=== PATIENT | male | born 1950 | race Caucasian/White ===

== ENCOUNTER 2021-03-15 11:58 | Outpatient (CLI) | payer OTHER | END 2021-03-15 11:59 | disposition home or self-care (01) | LOC: LAB 11:58 | PROVIDERS: ATTEND Radiology Diagnostic Radiology | DX: N28.89 Other specified disorders of kidney and ureter (principal) ==

== ENCOUNTER 2021-03-17 08:35 | Outpatient (CLI) | payer OTHER | END 2021-03-17 09:00 | disposition home or self-care (01) | LOC: TOM 08:35 | PROVIDERS: ATTEND Phlebology | DX: K76.89 Other specified diseases of liver (principal); Q44.6 Cystic disease of liver; Z98.62 Peripheral vascular angioplasty status; I72.3 Aneurysm of iliac artery | CPT/HCPCS: 74174; Q9965 ==

== ENCOUNTER 2021-08-25 08:35 | Outpatient (CLI) | payer OTHER | END 2021-08-25 09:15 | disposition home or self-care (01) | LOC: TOM 08:35 | PROVIDERS: ATTEND Phlebology | DX: Z98.62 Peripheral vascular angioplasty status (principal); I72.3 Aneurysm of iliac artery | CPT/HCPCS: 74174; Q9965 ==

== ENCOUNTER 2024-03-01 10:18 | Emergency (ER) | payer OTHER ==
[~2024-03-01] VITALS: Ht 170.2 cm; Wt 63.5 kg
[2024-03-01] MEDS ORDERED: ATORVASTATIN CA40 MG PO (10:50)
[2024-03-01] MEDS ORDERED: ATENOLOL25 MG PO (10:50)
[2024-03-01] MEDS ORDERED: VASOTEC20 MG PO (10:50)
[2024-03-01] MEDS ORDERED: PLAVIX75 MG PO (10:51)
[2024-03-01 11:22] LABS: HEMATOCRIT 42.2 % (39.0-48.0); HEMOGLOBIN 14.4 g/dL (13-16.00); MEAN CELL VOLUME 92.2 fL (80.0-100.00); MEAN CORPUSCULAR HEMOGLOBIN 31.4 pg (27.00-32.0); PLATELET COUNT 292 K/uL (150-450); RED BLOOD COUNT 4.58 M/uL (4.00-6.00); RED CELL DISTRIBUTION WIDTH 14.1 % (11.5-14.5)
[2024-03-01] MEDS ORDERED: FAMOTIDINE/PF 20 MG in 0.9 % SODIUM CHLORIDE 8 ML IV PUSH STA (11:24)
[2024-03-01 11:55] LABS: INR 1.05; PARTIAL THROMBOPLASTIN TIME 26.3 SECONDS (22.0-34.0); PROTHROMBIN TIME 11.4 SECONDS (9.0-11.5)
[2024-03-01 12:03] LABS: CALCIUM 8.9 mg/dL (8.5-10.1); CREATININE SERUM 1.1 mg/dL (0.70-1.30); GFR 65.99; POTASSIUM 4.02 mEq/L (3.5-5.1)
[2024-03-01] MEDS ORDERED: SUCRALFATE 1 G TABLET PO ONE (13:30)
== END 2024-03-01 14:13 | disposition home or self-care (01) ==
LOC: ER 10:18
PROVIDERS: Emergency Medicine
DX: R07.89 Other chest pain (principal); I10 Essential (primary) hypertension
CPT/HCPCS: 36415; 71045; 93005; 94760; 96365; 99283; J3490

== ENCOUNTER 2024-08-23 06:03 | Day surgery (SDC) | payer OTHER ==
[~2024-08-23 06:03] MED LIST: ATENOLOL25 MG PO; ATORVASTATIN CA40 MG PO; PLAVIX75 MG PO; VASOTEC20 MG PO
[2024-08-23] MEDS ORDERED: MIDAZOLAM HCL 2 MG/2 ML VIAL IV ONE (11:30)
[2024-08-23] MEDS ORDERED: fentaNYL CITRATE 50 MCG/ML AMPUL IV ONE (11:30)
[2024-08-23] MEDS ORDERED: DIPHENHYDRAMINE HCL 50 MG/ML VIAL 1ML IV ONE (11:30)
== END 2024-08-23 11:45 | disposition home or self-care (01) ==
LOC: AMB-ENDOS 06:03
PROVIDERS: ATTEND Surgery
DX: C18.0 Malignant neoplasm of cecum (principal); K63.5 Polyp of colon; K57.30 Diverticulosis of large intestine without perforation or abscess without bleeding; K64.8 Other hemorrhoids; D37.4 Neoplasm of uncertain behavior of colon

== ENCOUNTER 2024-09-26 10:45 | Inpatient (IN) | payer OTHER ==
[~2024-09-26] VITALS: Ht 213.4 cm; Wt 57.0 kg
[2024-09-26] MEDS ORDERED: AMBIEN10 MG PO (15:44)
[2024-10-04] MEDS ORDERED: METRONIDAZOLE/SODIUM CHLORIDE 500 MG/100 ML PIGGYBACK IV ONE ×2 (07:07→07:17)
[2024-10-04] MEDS ORDERED: CEFTRIAXONE SODIUM 2,000 MG VIAL ONE (07:07)
[2024-10-04] MEDS ORDERED: POVIDONE-IODINE 118 ML BOTT TOP ONE (07:07)
[2024-10-04] MEDS ORDERED: BUPIVACAINE HCL/MPF 0.5% 30ML VIAL ONE (07:16)
[2024-10-04] MEDS ORDERED: LIDOCAINE HCL 1%/EPINEPHRINE 20ML VIAL IJ ONE (07:16)
[2024-10-04] MEDS ORDERED: GENTAMICIN SULFATE 40 MG/ML VIAL ONE (08:28)
[2024-10-04] MEDS ORDERED: SUGAMMADEX SODIUM 200 MG/2 ML VIAL IV ONE (09:28)
[2024-10-04] MEDS ORDERED: METRONIDAZOLE/SODIUM CHLORIDE 500 MG/100 ML PIGGYBACK IV SCH (10:26)
[2024-10-04] MEDS ORDERED: OMEPRAZOLE40 MG (10:26)
[2024-10-04] MEDS ORDERED: FAMOTIDINE/PF 20 MG/2 ML VIAL IV PUSH SCH (10:26)
[2024-10-04] MEDS ORDERED: TRAZODONE HCL50 MG (10:26)
[2024-10-04] MEDS ORDERED: ONDANSETRON HCL 2 MG/ML VIAL IV PRN (10:30)
[2024-10-04] MEDS ORDERED: RINGERS SOLUTION,LACTATED 1,000 ML IV SCH (10:30)
[2024-10-04] MEDS ORDERED: MORPHINE SULFATE 4 MG/ML CARTRIDGE IV PRN (10:30)
[2024-10-04] MEDS ORDERED: MORPHINE SULFATE 4 MG/ML VIAL IV ONE ×2 (11:00→13:10)
[2024-10-04] MEDS ORDERED: HYOSCYAMINE SULFATE 0.125 MG TAB.SUBL SL SCH (13:00)
[2024-10-04 14:52] LABS: BASO % 0.4 % (0.1-1.2); EOS # 0.01 (0.04-0.54); EOS % 0.1 % (0.7-7.0); HEMATOCRIT 36.8 % (40.1-51.0); HEMOGLOBIN 11.5 g/dL (13.7-17.5); LYMPH # 1.51 (1.18-3.74); LYMPH % 18.4 % (19.3-53.1); MEAN CORPUSCULAR HEMOGLOBIN 30.3 pg (25.6-32.2); MONO # 0.46 (0.24-0.82); MONO % 5.6 % (4.7-12.5); NEUT # 6.15 (1.56-6.13); PLATELET COUNT 396 K/uL (163-369); RED CELL DISTRIBUTION WIDTH 13.2 % (11.6-14.4)
[2024-10-04 15:43] LABS: POTASSIUM 4.35 mEq/L (3.5-5.1)
[2024-10-04 15:49] LABS: CALCIUM 8.8 mg/dL (8.5-10.1); CREATININE SERUM 1.75 mg/dL (0.70-1.30); GFR 38.62
[2024-10-04 16:28] LABS: CALCIUM 6.7 mg/dL (8.5-10.1); POTASSIUM 3.75 mEq/L (3.5-5.1)
[2024-10-04 16:34] LABS: ALBUMIN 1.3 gm/dL (3.4-5.0); BILIRUBIN TOTAL 0.19 mg/dL (0.3-1.2); CREATININE SERUM 1.55 mg/dL (0.70-1.30); GFR 44.42; GLOBULINA 1.2 G/DL (2.4-3.5); TOTAL PROTEIN 2.5 gm/dL (6.4-8.2)
[2024-10-04] MEDS ORDERED: HEPARIN SODIUM,PORCINE 5,000 UNITS/ML VIAL IV ONE (16:45)
[2024-10-04] MEDS ORDERED: HEPARIN SODIUM PORCINE IV SCH (16:45)
[2024-10-04] MEDS ORDERED: SODIUM CHLORIDE 0.9% IV SCH (16:45)
[2024-10-04 16:56] LABS: BASO % 0.1 % (0.1-1.2); EOS # 0.01 (0.04-0.54); EOS % 0.1 % (0.7-7.0); LYMPH # 1.11 (1.18-3.74); LYMPH % 15.7 % (19.3-53.1); MEAN CORPUSCULAR HEMOGLOBIN 29.7 pg (25.6-32.2); MONO # 0.37 (0.24-0.82); MONO % 5.2 % (4.7-12.5); NEUT # 5.48 (1.56-6.13); NEUT % 77.9 % (34.0-71.1); PLATELET COUNT 262 K/uL (163-369); RED BLOOD COUNT 2.49 M/uL (4.63-6.08); RED CELL DISTRIBUTION WIDTH 13.3 % (11.6-14.4)
[2024-10-04 16:57] LABS: HEMATOCRIT 23.8 % (40.1-51.0)
[2024-10-04 16:58] LABS: HEMOGLOBIN 7.4 g/dL (13.7-17.5)
[2024-10-04 16:59] LABS: ABG PH 7.229 (7.35-7.45); ABG PO2 190.3 mmHg (80-100); ABG pCO2 30.4 mmHg (35-45); BASE EXCESS -13.7 mmol/l; BICARBONATE 12.4 mmol/l (23-25); SaO2 99.3 %; Tco2 13.3 mmol/l
[2024-10-04] MEDS ORDERED: CIPROFLOXACIN IN 5 % DEXTROSE 400 MG/200 ML PIGGYBAG IV SCH (17:00)
[2024-10-04 17:20] LABS: allen test SATISFACTORY; mode NON REBREATHING MASK; o2 100 %; puncture site RADIAL RIGHT
[2024-10-04 18:08] LABS: BASO % 0.6 % (0.1-1.2); EOS # 0.01 (0.04-0.54); EOS % 0.2 % (0.7-7.0); HEMATOCRIT 33.6 % (40.1-51.0); LYMPH # 0.89 (1.18-3.74); MEAN CORPUSCULAR HEMOGLOBIN 30.7 pg (25.6-32.2); MONO # 0.61 (0.24-0.82); MONO % 9.6 % (4.7-12.5); NEUT # 4.75 (1.56-6.13); NEUT % 74.7 % (34.0-71.1); PLATELET COUNT 231 K/uL (163-369); RED BLOOD COUNT 3.45 M/uL (4.63-6.08); RED CELL DISTRIBUTION WIDTH 13.4 % (11.6-14.4)
[2024-10-04 18:11] LABS: HEMOGLOBIN 10.6 g/dL (13.7-17.5)
[2024-10-04 19:02] VITALS: BP 119/69; O2SAT 97
[2024-10-04 20:38] LABS: ABG PH 7.276 (7.35-7.45); ABG pCO2 42.4 mmHg (35-45); BASE EXCESS -7.2 mmol/l; BICARBONATE 19.3 mmol/l (23-25); SaO2 62.7 %; Tco2 20.6 mmol/l
[2024-10-04 22:41] LABS: ABG PO2 38.3 mmHg (80-100); o2 36 %; puncture site RADIAL LEFT
[2024-10-04 22:42] LABS: allen test SATISFACTORY; mode NASAL CANNULA
[2024-10-05] MEDS ORDERED: ENOXAPARIN SODIUM 40 MG/0.4 ML SYRINGE SUBCUTANEO SCH (17:00)
[2024-10-06] MEDS ORDERED: ENOXAPARIN SODIUM 40 MG/0.4 ML SYRINGE SUBCUTANEO SCH (09:00)
== END 2024-10-05 03:35 | disposition designated cancer center or children's hospital (05) | DRG 330 ==
LOC: O/R 10-04 05:42 → SURH 10-04 10:45
PROVIDERS: Anesthesiology; Anesthesiology Pain Medicine; Internal Medicine; ADMIT Surgery; ATTEND Surgery
PROC: 0DNW0ZZ Release Peritoneum, Open Approach (ICD-10-PCS; 2024-10-04)
PROC: 0DJD4ZZ Inspection of Lower Intestinal Tract, Percutaneous Endoscopic Approach (ICD-10-PCS; 2024-10-04)
PROC: 0DQ80ZZ Repair Small Intestine, Open Approach (ICD-10-PCS; 2024-10-04)
PROC: B44HZZZ Ultrasonography of Bilateral Lower Extremity Arteries (ICD-10-PCS; 2024-10-04)
PROC: 4A12X4Z Monitoring of Cardiac Electrical Activity, External Approach (ICD-10-PCS; 2024-10-04)
PROC: 4A033R1 Measurement of Arterial Saturation, Peripheral, Percutaneous Approach (ICD-10-PCS; 2024-10-04)
PROC: 0D1E0ZE Bypass Large Intestine to Large Intestine, Open Approach (ICD-10-PCS; principal; 2024-10-04 12:15)
DX: C18.0 Malignant neoplasm of cecum (principal); C78.6 Secondary malignant neoplasm of retroperitoneum and peritoneum; K91.71 Accidental puncture and laceration of a digestive system organ or structure during a digestive system procedure; K66.0 Peritoneal adhesions (postprocedural) (postinfection); Z53.31 Laparoscopic surgical procedure converted to open procedure; I73.9 Peripheral vascular disease, unspecified